=== PATIENT | male | born 1995 | race Caucasian/White ===

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

== ENCOUNTER 2017-04-26 08:23 | Emergency (ER) | payer OTHER ==
--- NOTE | 2017-04-26 08:56 | ER Document Report ---
ED General - General Chief Complaint: Foot Injury Stated Complaint: LT FOOT INJURY Time Seen by Provider: 04/26/17 08:44 Mode of Arrival: Ambulatory Information source: Patient, Parent TRAVEL OUTSIDE OF THE [place] IN LAST 30 DAYS: No - HPI Notes: Female presents today with complaints of left foot pain after he kicked a metal pole while he was concerned with his dog accidentally 1 day. Reports pain is 6 out of 10, throbbing achy. Denies any other area of injury. Unable to bear full weight. Denies any open wounds. Tried icing, no [id number] ibuprofen or Tylenol. Worse with ambulation, better at rest. Denies prior history of foot pain. Denies fevers, chills, chest pain,palpitations, shortness of breath, dyspnea, nausea, vomiting, diarrhea, abdominal pain, hematuria,blurred vision, double vision, loss of vision, speech changes, LH, dizziness, syncope, headaches, wheezing, ST, URI, neck pain, weakness, bowel or bladder dysfunction, saddle anesthesia, numbness or tingling in bilateral upper or lower extremities equally, muscle paralysis, weakness in bilateral upper or lower extremities equally or rash. Denies IV drug use. - Related Data Allergies/Adverse Reactions: No Known Allergies Allergy (Unverified 04/26/17 08:25) Past Medical History - General Information source: Patient, Parent - Social History Smoking Status: Never Smoker Family History: Reviewed & Not Pertinent Review of Systems - Review of Systems Notes: REVIEW OF SYSTEMS: CONSTITUTIONAL : Denies fever, chills, or sweats. Denies recent illness. EENT: Denies eye, ear, throat, or mouth pain or symptoms. Denies nasal or sinus congestion or discharge. Denies throat, tongue, or mouth swelling or difficulty swallowing. CARDIOVASCULAR: Denies chest pain. Denies palpitations or racing or irregular heart beat. Denies ankle edema. RESPIRATORY: Denies cough, cold, or chest congestion. Denies shortness of breath, difficulty breathing, or wheezing. GASTROINTESTINAL: Denies abdominal pain or distention. Denies nausea, vomiting , or diarrhea. Denies blood in vomitus, stools, or per rectum. Denies black, tarry stools. Denies constipation. GENITOURINARY: Denies difficulty urinating, painful urination, burning, frequency, blood in urine, or discharge. MUSCULOSKELETAL: left foot pain. Denies back or neck pain or stiffness. Denies joint pain or swelling. SKIN: Denies rash, lesions or sores. HEMATOLOGIC : Denies easy bruising or bleeding. LYMPHATIC: Denies swollen, enlarged glands. NEUROLOGICAL: Denies confusion or altered mental status. Denies passing out or loss of consciousness. Denies dizziness or lightheadedness. Denies headache. Denies weakness or paralysis or loss of use of either side. Denies problems with gait or speech. Denies sensory loss, numbness, or tingling. Denies seizures. PSYCHIATRIC: Denies anxiety or stress. Denies depression, suicidal ideation, or homicidal ideation. ALL OTHER SYSTEMS REVIEWED AND NEGATIVE. Dictation was performed using [employer] voice recognition software PHYSICAL EXAMINATION: GENERAL: Well-appearing, well-nourished and in no acute distress. HEAD: Atraumatic, normocephalic. EYES: Pupils equal round and reactive to light, extraocular movements intact, sclera anicteric, conjunctiva are normal. ENT: Nares patent, oropharynx clear without exudates. Moist mucous membranes. NECK: Normal range of motion, supple without lymphadenopathy LUNGS: Breath sounds clear to auscultation bilaterally and equal. No wheezes rales or rhonchi. HEART: Regular rate and rhythm without murmurs ABDOMEN: Soft, nontender, nondistended abdomen. No guarding, no rebound. No masses appreciated. Musculoskeletal: Normal range of motion, no pitting or edema. No cyanosis. left medial aspect foot with STS and tenderness on 1st metatarsal bone with palpation. Unable to palpate a step-off. No open lesions. squeeze test negative. dtr +2 BLE. Limited APROM. distal pulses + 2 in BUE. full motor and sensory function. No vascular compromise. Ankle exam within normal limits. No noted lacerations, lesions, ulcers or break in the skin. NEUROLOGICAL: Cranial nerves grossly intact. Normal speech, normal gait. Normal sensory, motor exams PSYCH: Normal mood, normal affect. SKIN: Warm, Dry, normal turgor, no rashes or lesions noted. Physical Exam - Vital signs Vitals: Temp Pulse Resp BP Pulse Ox 97.7 F 79 16 129/74 H 100 04/26/17 08:30 04/26/17 08:30 04/26/17 08:30 04/26/17 08:30 04/26/17 08:30 Course - Re-evaluation Re-evalutation: Discussed the results radiology as well as the diagnosis at great length. Negative for any acute fracture dislocation. Advised to follow Rice therapy. Use crutches as directed. Advised to follow-up with reconciliation specialist and PCP within 1 week, consider re-x-ray if pain continues to stay consistent. Take [id number] ibuprofen and Tylenol for pain. Discussed the need to return to the ER for any new or worsening sx. Patient understands to take the Rx as directed. All questions answered. Patient comfortable with the decision to go home. After performing a Medical Screening Examination, I estimate there is LOW risk for CLOSED/OPEN FRACTURE, COMPARTMENT SYNDROME, DEEP VENOUS THROMBOSIS, ACUTE TENDON RUPTURE, or NEUROVASCULAR INJURY thus I consider the discharge disposition reasonable. I have reevaluated this patient multiple times and no significant life threatening changes are noted. The patient and I have discussed the diagnosis and risks, and we agree with discharging home to closely follow-up with their primary doctor or the referral orthopedist with the understanding that symptoms and presentations can change. We also discussed returning to the Emergency Department immediately if new or worsening symptoms occur. We have discussed the symptoms which are most concerning (e.g., changing or worsening pain, numbness, weakness) that necessitate immediate return 04/26/17 09:44 - Vital Signs Vital signs: Temp Pulse Resp BP Pulse Ox 97.7 F 79 16 129/74 H 100 04/26/17 08:30 04/26/17 08:30 04/26/17 08:30 04/26/17 08:30 04/26/17 08:30 Discharge - Discharge Clinical Impression: Sprain of left foot Qualifiers: Encounter type: initial encounter Qualified Code(s): S93.602A - Unspecified sprain of left foot, initial encounter Condition: Good Disposition: HOME, SELF-CARE Instructions: Use of Crutches ([facility]), Ice Packs ([facility]), Sprain ([facility]) Additional Instructions: Sprained Toe Your toe injury is a sprain. A sprain is an over-stretching or tearing of the ligaments which guard the joints. The injury may require a few weeks of protection while it heals. Toe sprains usually do not require a splint. Instead, the injured toe is taped to an adjacent toe. Ice packs and elevation help reduce swelling. Complete healing takes about three weeks. Sometimes a severe toe sprain may require a special shoe, cast, or walking boot before you can bear weight comfortably on the foot. Your physician has assessed the seriousness of the ligament injury in your toe, and has outlined the initial treatment plan. Understand that this treatment may change, depending on how your toe progresses. If further visits were recommended, it is important that you follow up as instructed. Call the doctor at once if there is severe pain or numbness in the toe. Orthopedic Office [facility] [address] [place] [id number] phone: [phone] Return immediately for any new or worsening symptoms. Follow up with primary care provider, call tomorrow to make followup appointment. Prescriptions: Ibuprofen 600 mg PO QIDP PRN #20 tablet PRN Reason: Forms: Return to School, Release from PE and Sports Referrals: RODRIGUEZ GAMINO PA-C [Primary Care Provider] - Follow up as needed CLEMENT NGUYỄN MD [ACTIVE STAFF] - Follow up in 1 week
--- NOTE | 2017-04-26 09:20 | RADIOLOGY REPORT (SQ) ---
EXAM DESCRIPTION: FOOT LEFT COMPLETE COMPLETED DATE/TIME: 04/26/2017 9:10 am REASON FOR STUDY: left foot pain after kicking a soccer pole x 1 day COMPARISON: None. NUMBER OF VIEWS: Three views. TECHNIQUE: AP, lateral and oblique radiographic images acquired of the left foot. LIMITATIONS: None. FINDINGS: MINERALIZATION: Normal. BONES: No acute fracture or dislocation. No worrisome bone lesions. JOINTS: No effusions. SOFT TISSUES: No soft tissue swelling. No foreign body. OTHER: No other significant finding. IMPRESSION: NEGATIVE STUDY OF THE LEFT FOOT. NO RADIOGRAPHIC EVIDENCE OF ACUTE INJURY. TECHNICAL DOCUMENTATION: JOB ID: [id number] [employer]- All Rights Reserved Reading location - IP/workstation name: [email or web address]
[2017-04-26 09:58] VITALS: BP 129/70
== END 2017-04-26 10:10 | disposition home or self-care (01) ==
LOC: ER 08:23
DX: S93.602A Unspecified sprain of left foot, initial encounter (principal); M79.672 Pain in left foot; W21.89XA Striking against or struck by other sports equipment, initial encounter
CPT/HCPCS: 99283